=== PATIENT | female | born 1980 | race Caucasian/White ===

== ENCOUNTER 2017-09-14 13:42 | Emergency (ER) | payer OTHER ==
[~2017-09-14] VITALS: Ht 170.2 cm; Wt 102.3 kg
[2017-09-14 13:45] VITALS: Ht 170.2 cm; Wt 102.3 kg
[2017-09-14 16:33] LABS: BASOPHIL % 0.6 % (0-2); PLATELET COUNT 168 x10^3mcL (130-400); RED CELL DISTRIBUTION WIDTH 13.6 % (11.5-14.5)
[2017-09-14 16:49] LABS: CALCIUM 7.7 mg/dL (8.5-10.1); CARBON DIOXIDE 28.6 mmol/L (21-32); CHLORIDE SERUM 103 mmol/L (98-107); CREATININE SERUM 0.7 mg/dL (0.6-1.0); GFR1 > 60 mL/min; GLUCOSE SERUM 168 mg/dL (74-106); POTASSIUM SERUM 3.8 mmol/L (3.5-5.1); SODIUM SERUM 137 mmol/L (136-145)
[2017-09-14 17:01] LABS: ALKALINE PHOSPHATASE 85 U/L (46-116); ALT/SGPT 159 U/L (14-59); AMYLASE 30 U/L (25-115); AST/SGOT 102 U/L (15-37); BILIRUBIN TOTAL 0.5 mg/dL (0.20-1.00); CHOLESTEROL 177 mg/dL (<200); HDL CHOLESTEROL 37 mg/dL (40-60); LIPASE 205 IU/L (73-393); MAGNESIUM 1.8 mg/dL (1.8-2.4); T4(THYROXINE) 6.2 ug/dL (4.7-13.3); TOTAL PROTEIN, SERUM 6.5 g/dL (6.4-8.2)
[2017-09-14 17:04] LABS: ALBUMIN 3.2 g/dL (3.4-5.0)
[2017-09-14 17:07] LABS: microscopic required? YES; urine erythrocyte TRACE (NEGATIVE)
[2017-09-14 17:22] LABS: AMPHETAMINE QUAL UR NONE DETECTED (See below)
[2017-09-14 19:19] VITALS: BP 112/69
== END 2017-09-14 19:19 | disposition home or self-care (01) ==
LOC: ED 13:42
PROVIDERS: Emergency Medicine
DX: R42 Dizziness and giddiness (principal); R07.89 Other chest pain; R10.9 Unspecified abdominal pain; E46 Unspecified protein-calorie malnutrition; E66.9 Obesity, unspecified
CPT/HCPCS: 36415; 83880